=== PATIENT | female | born 1940 | race Caucasian/White ===

== ENCOUNTER → 2016-11-15 | Outpatient (CLI) | payer MEDICARE ==
[~2016-11-15] MED LIST: /AMLO25TA PO; /ONDA4TA PO; /WARF25TA; ALEV220C2; ANOR1AER INH; AQUAOIN2 EX; ASPI81TA4 PO; CIPR500T89 PO; COUM1TAB17 PO; COUM7.5T PO; DICL75TA PO; HYDR-3713 PO; IBUP100SUS PO; LIPI20TA PO; LISI2.5T PO; METH4TAB6 PO; OXCA300T PO; OXYC30TA4 PO; OXYC5CAP2 PO; PERC7.5T12 PO; PERCOCET PO; PRIL20TA2 PO; SPIRIVA; Spiriva Handihaler INH; TRIL300S PO; TYLE325T5 PO; VARE1TA PO; VITA10002 PO; VITA100T2 PO; VITA500047 PO; VITA500T88 PO; VITAD1000T PO; VITAMIN D PO; ZYMA0.5S OP
--- NOTE | 2016-11-15 10:07 | REP ---
Clinical: Abnormal liver function tests. Technique: Real time little scale ultrasound examination using curved array transducer. Findings: Evaluation is limited by body habitus and associated technical factors including poor through transmission. Diffuse fatty infiltration to the liver is appreciated without focal hepatic lesion identified. The pancreas is incompletely evaluated but visualized portions appear normal. The patient is status post cholecystectomy. There is no evidence for biliary ductal dilatation and the common bile duct measures 6.6 mm diameter. The spleen is normal in contour, size and echogenicity measuring 9.9 cm in length without focal splenic lesion identified. The kidneys are essentially normal and without hydronephrosis, cystic or obvious mass lesion. Right kidney measures 11.4 x 5.3 x 4.1 cm and partial duplication to the collecting system cannot be excluded along with renovascular calcifications. Left kidney measures 11.4 x 6.4 x 5.8 cm with renovascular calcifications noted. The abdominal aorta measures up to 3.6 centimeters diameter suggesting ectasia/mild aneurysmal dilatation. No ascites noted. Impression: Fatty infiltration to the liver without focal hepatic lesion identified. Abdominal aortic aneurysm 3.6 cm maximal diameter. Signed by Montana Alaniz MD 11/15/2016 09:58 A
--- NOTE | 2016-11-15 10:11 | REP ---
CAROTID ULTRASOUND: Real-time ultrasound evaluation and duplex Doppler interrogation of the extracranial carotid vasculature is performed. There is mild to moderate plaquing and narrowing in both carotid bulbs extending into the internal and external carotid arteries. Luminal narrowing is less than 50%. There is no evidence of hemodynamically significant stenosis of either internal carotid artery. Normal flow velocities are seen. The vertebral arteries demonstrate normal direction of flow. RIGHT LEFT Peak systolic velocity ICA 82.6 cm/s 85.6 cm/s End diastolic velocity ICA 23.1 cm/s 27.8 cm/s Peak systolic velocity CCA 76 cm/s 86.6 cm/s Peak systolic velocity ECA 67.4 cm/s 109.6 cm/s ICA/CCA ratio 1.1 1.0 IMPRESSION: Bilateral luminal narrowing of the internal carotid arteries less than 50%. No evidence of hemodynamically significant stenosis. Signed by Eamon Piedra MD 11/15/2016 10:02 A
== END ==
LOC: M RAD 07:37
PROVIDERS: ATTEND Family Medicine
DX: I71.4 Abdominal aortic aneurysm, without rupture (principal)

== ENCOUNTER 2018-07-17 06:56 | Day surgery (SDC) | payer MEDICARE ==
[2018-07-17] MEDS: METHYLENE BLUE 0.5% (5MG/ML) 10 ML AMP (PROVAYBLUE)(Q9968 PER 1MG) As Ordered (07:09)
[2018-07-17] MEDS: EPINEPHrine 1MG/ML INJ 30ML MD-VIAL As Ordered (07:10)
[2018-07-17 07:35] LABS: BEDSIDE GLUCOSE 164 MG/DL (83-110)
[2018-07-17] MEDS: LR 1,000 ML IV (07:40)
[2018-07-17] MEDS ORDERED: LIDOCAINE 2% INJ 100 MG/5 ML SDV (FOR ANES.) As Ordered (08:15)
[2018-07-17] MEDS ORDERED: ONDANSETRON 4MG/2ML VIAL (J2405) As Ordered (08:15)
[2018-07-17] MEDS ORDERED: fentaNYL 100 MCG/2 ML INJECTION (J3010) As Ordered (08:15)
[2018-07-17] MEDS ORDERED: PROPOFOL 200 MG/20 ML VIAL As Ordered ×2 (08:15→09:45)
[2018-07-17] MEDS: LIDOCAINE W/EPINEPHRINE 1% 20ML VIAL As Ordered (09:13)
[2018-07-17] MEDS: BACITRACIN OINT 30GM As Ordered (10:05)
== END 2018-07-17 10:50 | disposition home or self-care (01) ==
LOC: M SDC 06:56
DX: C44.311 Basal cell carcinoma of skin of nose (principal); E11.9 Type 2 diabetes mellitus without complications; I71.4 Abdominal aortic aneurysm, without rupture; K21.9 Gastro-esophageal reflux disease without esophagitis; R23.3 Spontaneous ecchymoses; M12.9 Arthropathy, unspecified; R29.898 Other symptoms and signs involving the musculoskeletal system; J45.909 Unspecified asthma, uncomplicated; J44.9 Chronic obstructive pulmonary disease, unspecified; R06.09 Other forms of dyspnea; G47.33 Obstructive sleep apnea (adult) (pediatric); Z88.1 Allergy status to other antibiotic agents; Z88.5 Allergy status to narcotic agent; Z79.84 Long term (current) use of oral hypoglycemic drugs; Z98.1 Arthrodesis status; Z86.718 Personal history of other venous thrombosis and embolism; Z90.710 Acquired absence of both cervix and uterus; Z96.643 Presence of artificial hip joint, bilateral; Z87.891 Personal history of nicotine dependence
CPT/HCPCS: 11641

== ENCOUNTER 2018-12-10 13:56 | Inpatient (IN) | payer MEDICARE ==
[~2018-12-10] VITALS: Ht 157.5 cm; Wt 84.8 kg
[~2018-12-10 13:56] MED LIST changes: -/AMLO25TA PO; -/ONDA4TA PO; -/WARF25TA; -ALEV220C2; +ALEV220C2 PO; +COUM1TAB18; +IBUP100S44 PO; -IBUP100SUS PO; +METF500T13 PO; +NORV2TAB PO; +ONDA-1 PO; +OXYC1TAB23 PO; -PERCOCET PO; +VITA100067 PO
[2018-12-10] MEDS ORDERED: METF-877 PO (14:04)
[2018-12-10 14:53] LABS: BASO # 0.1 10^3/uL (0.0-0.2); BASO % 0.7 % (0.0-1.0); EOS # 0.2 10^3/uL (0.0-0.50); EOS % 2.5 % (0.0-3.0); HEMATOCRIT 23.8 % (36.0-47.0); LYMPH # 1.1 10^3/uL (1.5-4.5); LYMPH % 16.9 % (24.0-44.0); MEAN CORPUSCULAR HEMOGLOBIN 23.6 pg (27.0-33.0); MEAN CORPUSCULAR HGB CONC 29.4 g/dl (32.0-36.5); MEAN CORPUSCULAR VOLUME 80.4 fl (80.0-96.0); MONO % 14.5 % (0.0-5.0); NEUTROPHILS # 4.4 10^3/uL (1.8-7.7); NEUTROPHILS % 65.1 % (36.0-66.0); PLATELET COUNT, AUTOMATED 188 10^3/uL (150-450); RED BLOOD COUNT 2.96 10^6/uL (4.00-5.40); WHITE BLOOD COUNT 6.7 10^3/uL (4.0-10.0)
[2018-12-10 15:04] LABS: INR 0.94; PROTHROMBIN TIME 12.7 SECONDS (12.1-14.4)
[2018-12-10 15:05] LABS: PARTIAL THROMBOPLASTIN TIME 37.8 SECONDS (25.4-37.6)
--- NOTE | 2018-12-10 15:13 | REP ---
Chest two views HISTORY: Shortness of breath Comparison: 07/26/1962 An increase in interstitial markings is present in the lower lobes consistent with chronic interstitial fibrosis. Patchy density is present in the right lower lobe consistent with atelectasis or infiltrate. A small right pleural effusion is present. The heart is upper limits of normal in size. The pulmonary vasculature is normal in appearance. The bony structure is intact. IMPRESSION: 1. Bibasilar chronic interstitial fibrosis. 2. Right lower lobe atelectasis or infiltrate. 3. Small right pleural effusion. Electronically Signed by Edmundo Edgar MD 12/10/2018 03:04 P
[2018-12-10 15:25] LABS: ALBUMIN 3.2 GM/DL (3.2-5.2); ALT/SGPT 21 U/L (12-78); BILIRUBIN,DIRECT < 0.1 MG/DL (0.0-0.2); BILIRUBIN,TOTAL 0.3 MG/DL (0.2-1.0); BLOOD UREA NITROGEN 15 MG/DL (7-18); CALCIUM LEVEL 8.5 MG/DL (8.8-10.2); CARBON DIOXIDE LEVEL 30 MEQ/L (21-32); CHLORIDE LEVEL 102 MEQ/L (98-107); CPK CREATINE PHOSPHOKINASE 57 U/L (26-192); CREATININE FOR GFR 0.69 MG/DL (0.55-1.30); FREE T4 1.31 NG/DL (0.76-1.46); GLOMERULAR FILTRATION RATE > 60.0 (>32); GLUCOSE, FASTING 92 MG/DL (70-100); MB/CK RELATIVE INDEX 2.63 (< OR =4); NT-PRO BNP 379 PG/ML (<450); POTASSIUM SERUM 4.3 MEQ/L (3.5-5.1); SODIUM LEVEL 138 MEQ/L (136-145); TROPONIN I 0.03 NG/ML (< 0.10)
[2018-12-10] MEDS ORDERED: METF500T4 PO ×2 (16:02)
[2018-12-10] MEDS ORDERED: VITA-183 PO (16:02)
[2018-12-10] MEDS ORDERED: NS 1,000 ML IV SCH (16:27)
[2018-12-10] MEDS ORDERED: DEXTROSE 50% 50 ML SYRINGE IV PRN (16:30)
[2018-12-10] MEDS ORDERED: GLUCOSE 4 GM CHEW TABLET PO PRN (16:30)
[2018-12-10] MEDS ORDERED: GLUCAGON FOR INJ 1 MG VIAL (J1610) SC PRN (16:30)
--- NOTE | 2018-12-10 17:01 | HPEPDOC ---
[facility] Medical History & Physical Date of Admission Dec 10, [address] Clifton (GI) Attending Physician: MARYANNE KOO MD History and Physical CHIEF COMPLAINT: Shortness of breath HISTORY OF PRESENT ILLNESS: Patient is a 78-year-old female with past medical history of COPD, DVT, and GI bleed in 2017 status post for colonoscopies presented to the ER with complaints of shortness of breath. Patient stated that she has been getting worsening shortness of breath over the past 2 weeks. She initially went to urgent care and found to have some EKG changes and therefore sent to [place] ER. At [place], everything was deemed normal and she was discharged home. She will follow up with her PCP post discharge and was found to be anemic with hemoglobin of 7.6 and was sent to the ER. In the ER here, patient was found to have a hemoglobin 7.0. Rectal exam show no blood however. Patient stated that she has no known history of anemia until recently. Of note, when she had rectal bleeding in July [address] Clifton and has for colonoscopies and was told that she had a polyp that was unable to be reached and that she should follow up in about 1 year. However, she had not follow-up since then because she has not received any phone calls. Patient denies any other complaints apart from shortness of breath. She denies noticing any abnormal dark stool color nor blood in her stool. She reported feeling fine and has had no issues apart from what was mentioned. PAST MEDICAL HISTORY: Refer to HPI PAST SURGICAL HISTORY: Hysterectomy Cholecystectomy Appendectomy Lumbar spinal fusion Bilateral hip replacement SOCIAL HISTORY: Former smoker, denies alcohol or illicit drug use. FAMILY HISTORY: Both parents with congestive heart failure Father with atrial fibrillation Brother with cirrhosis and diabetes mellitus ALLERGIES: Please see below. REVIEW OF SYSTEMS: 10 point review of system negative except as stated in HPI HOME MEDICATIONS: Please see below. PHYSICAL EXAMINATION: General: No acute distress, Alert. Pale. Eyes: Normal sclera, EOMI, RIKKI HENT: Atraumatic, neck supple, moist mucous membranes Cardiovascular: Normal rate, normal rhythm. No murmurs appreciated. Pulmonary: Clear to auscultation b/l, no wheezing GI: Soft, nontender, nondistended Skin: Warm and dry Neuro: CN grossly intact. No focal deficits. Strengths equal b/l. Psych: oriented x 3 LABORATORY DATA: See below. IMAGING: CXR- IMPRESSION: 1. Bibasilar chronic interstitial fibrosis. 2. Right lower lobe atelectasis or infiltrate. 3. Small right pleural effusion. MICROBIOLOGY: Please see below. ASSESSMENT AND PLAN: 1. SOB - Likely 2/2 symptomatic anemia. - history of GI bleed in 2017 s/p 4 colonoscopies. - Reportedly has 1 polyp that was not reached and supposed to follow up but lost to follow up. - rectal exam showed no evidence of blood. Will obtain fecal occult blood test. - Transfuse 2 units pRBC. Monitor H/H. - likely slow bleed, no evidence of gross blood noted. - If stable, patient and family would like to perform colonoscopies as outpatient with Dr Clifton in [place]. - Will defer GI consult at this time. If gross bleeding develops or Hb not corrected, will need GI input and likely scope here. - Obtain Iron and other anemia panel labs. 2. DM - On metformin at home. - Hold PO glycemic meds. ISS and accuchecks ACHS. 3. COPD - Uses O2 only at night 2L. - Does not appear to be in exacerbation. - duonebs PRN. 4. hx DVT - approximately 20 years ago, no longer on blood thinners. DVT ppx: ORAL only. Hold heparin or lovenox due to GI bleed. Code status: DNR Vital Signs Vital Signs Date Time Temp Pulse Resp B/P (MAP) Pulse Ox O2 Delivery O2 Flow Rate FiO2 12/10/18 14:36 12/10/18 14:36 Nasal Cannula 2.0 12/10/18 13:56 99.0 95 17 89 Laboratory Data Labs 24H Laboratory Tests 2 12/10/18 14:35: Immature Granulocyte % (Auto) 0.3, White Blood Count 6.7, Red Blood Count 2.96L, Hemoglobin 7.0L, Hematocrit 23.8L, Mean Corpuscular Volume 80.4, Mean Corpuscular Hemoglobin 23.6L, Mean Corpuscular Hemoglobin Concent 29.4L, Red Cell Distribution Width 17.6H, Platelet Count 188, Neutrophils (%) (Auto) 65.1, Lymphocytes (%) (Auto) 16.9L, Monocytes (%) (Auto) 14.5H, Eosinophils (%) (Auto) 2.5, Basophils (%) (Auto) 0.7, Neutrophils # (Auto) 4.4, Lymphocytes # (Auto) 1.1L, Monocytes # (Auto) 1.0H, Eosinophils # (Auto) 0.2, Basophils # (Auto) 0.1, Nucleated Red Blood Cells % (auto) 0.0, Prothrombin Time 12.7, Prothromb Time International Ratio 0.94, Activated Partial Thromboplast Time 37.8H, Anion Gap 6L, Glomerular Filtration Rate > 60.0, Calcium Level 8.5L, Aspartate Amino Transf (AST/SGOT) 32, Alanine Aminotransferase (ALT/SGPT) 21, Alkaline Phosphatase 144H, Total Bilirubin 0.3, Direct Bilirubin < 0.1, Total Creatine Kinase 57, Creatine Kinase MB 2.0, Creatine Kinase MB Relative Index 2.63, Troponin I 0.03, XR-Vpd-D-Type Natriuretic Peptide 379, Total Protein 7.0, Albumin 3.2, Albumin/Globulin Ratio 0.84L, Thyroid Stimulating Hormone (TSH) 1.240, Free Thyroxine 1.31 CBC/BMP Laboratory Tests 12/10/18 14:35 Red Blood Count 2.96 L, Mean Corpuscular Volume 80.4, Mean Corpuscular Hemoglob in 23.6 L, Mean Corpuscular Hemoglobin Concent 29.4 L, Red Cell Distribution Width 17.6 H, Neutrophils (%) (Auto) 65.1, Lymphocytes (%) (Auto) 16.9 L, Monocytes (%) (Auto) 14.5 H, Eosinophils (%) (Auto) 2.5, Basophils (%) (Auto) 0.7, Neutrophils # (Auto) 4.4, Lymphocytes # (Auto) 1.1 L, Monocytes # (Auto) 1.0 H, Eosinophils # (Auto) 0.2, Basophils # (Auto) 0.1 Home Medications Scheduled Cholecalciferol (Vitamin D3) (Vitamin D3) 1,000 Unit Capsule, 2,000 UNIT PO DAILY Metformin HCl (Metformin HCl ER) 500 Mg Tab.er.24h, 500 MG PO DAILY Metformin HCl (Metformin HCl ER) 500 Mg Tab.er.24h, 1,000 MG PO QHS Umeclidinium Brm/Vilanterol Tr (Anoro Ellipta 62.5-25 Mcg INH) 1 Aer Aer, 1 PUFF INH DAILY PT ONLY USES NEEDED Allergies Coded Allergies: MS - Cephalosporins (Verified Allergy, Intermediate, HIVES, 07/17/18) Cephalosporins (Unverified Allergy, Unknown, HIVES, 12/10/18) morphine (Unverified Allergy, Unknown, LOCAL REDNESS, 12/10/18) MS - Morphine (Verified Adverse Reaction, Mild, LOCAL REDNESS, 07/17/18) MARYANNE KOO MD Dec 10, 2018 17:01
[2018-12-10 17:19] LABS: FERRITIN 12 NG/ML (8-252); IRON (FE) 20 UG/DL (50-170); PERCENT SATURATION 3.9 % (13.2-45.0); TOTAL IRON BINDING CAPACITY 515 UG/DL (250-450)
[2018-12-10 17:29] LABS: VITAMIN B12 LEVEL 354 PG/ML
[2018-12-10 17:30] LABS: FOLATE 9.2 NG/ML
[2018-12-10] MEDS: HumaLOG INSULIN (NovoLOG) PER UNIT SC SCH ×2 (17:30→21:00)
[2018-12-10 18:05] LABS: D-DIMER QUANT 2989.18 ng/ml (<500)
[2018-12-10 18:45] VITALS: BP 159/73
[2018-12-10 20:00] VITALS: BP 150/69
[2018-12-10 22:00] VITALS: BP 126/62
[2018-12-10] MEDS: PANTOPRAZOLE 40MG INJ (PROTONIX) (C9113) IV SCH (23:06)
[2018-12-11 02:00] VITALS: BP 130/66
[2018-12-11 06:00] VITALS: BP 128/66
[2018-12-11 06:14] LABS: HEMATOCRIT 27.4 % (36.0-47.0); HEMOGLOBIN 8.2 g/dl (12.0-15.5); MEAN CORPUSCULAR HEMOGLOBIN 23.8 pg (27.0-33.0); MEAN CORPUSCULAR HGB CONC 29.9 g/dl (32.0-36.5); MEAN CORPUSCULAR VOLUME 79.7 fl (80.0-96.0); PLATELET COUNT, AUTOMATED 176 10^3/uL (150-450); RED BLOOD COUNT 3.44 10^6/uL (4.00-5.40); WHITE BLOOD COUNT 5.9 10^3/uL (4.0-10.0)
[2018-12-11 06:41] LABS: BLOOD UREA NITROGEN 10 MG/DL (7-18); CALCIUM LEVEL 8.1 MG/DL (8.8-10.2); CARBON DIOXIDE LEVEL 29 MEQ/L (21-32); CHLORIDE LEVEL 106 MEQ/L (98-107); CREATININE FOR GFR 0.71 MG/DL (0.55-1.30); GLOMERULAR FILTRATION RATE > 60.0 (>32); GLUCOSE, FASTING 113 MG/DL (70-100); POTASSIUM SERUM 4.2 MEQ/L (3.5-5.1); SODIUM LEVEL 140 MEQ/L (136-145)
[2018-12-11] MEDS: HumaLOG INSULIN (NovoLOG) PER UNIT SC SCH ×4 (07:30→20:58)
[2018-12-11] MEDS: PANTOPRAZOLE 40MG INJ (PROTONIX) (C9113) IV SCH ×2 (08:59→20:58)
[2018-12-11] MEDS ORDERED: ONDANSETRON 4MG/2ML VIAL (J2405) IV PRN (09:45)
[2018-12-11 10:00] VITALS: BP 124/69
[2018-12-11 14:00] VITALS: BP 139/70
--- NOTE | 2018-12-11 15:34 | IPNPDOC ---
Date Seen The patient was seen on 12/11/18. Progress Note SUBJECTIVE: 78-year-old female history of COPD, DVT and previous episode GI bleeding in 2017 Presented with Complaints of Shortness of Breath and Anemia Admitted for Symptomatic Anemia. Interval history: Patient reported feeling relatively unchanged and still with SOB. s/p 2 units pRBC. otherwise has no other complaints apart from SOB. Saturating well overnight. OBJECTIVE PHYSICAL EXAMINATION: VITAL SIGNS: Please see below. General: No acute distress, Alert Eyes: Normal sclera, EOMI, RIKKI HENT: Atraumatic, neck supple, moist mucous membranes Cardiovascular: Normal rate, normal rhythm. No murmurs appreciated. Pulmonary: Clear to auscultation b/l, no wheezing GI: Soft, nontender, nondistended Skin: Warm and dry Neuro: CN grossly intact. No focal deficits. Strengths equal b/l. Psych: oriented x 3 LABORATORY DATA, IMAGING STUDIES, MICROBIOLOGY: Please see below. DVT prophylaxis ordered?: ORAL ASSESSMENT AND PLAN: 1. SOB - Likely 2/2 symptomatic anemia. - history of GI bleed in 2017 s/p 4 colonoscopies. - Reportedly has 1 polyp that was not reached and supposed to follow up but lost to follow up. - rectal exam showed no evidence of blood. - s/p 2 units pRBC. Monitor H/H. - likely slow bleed, no evidence of gross blood noted. - If stable, patient and family would like to perform colonoscopies as outpatient with Dr Clifton in [place]. - Will defer GI consult at this time. If gross bleeding develops or Hb not corrected, will need GI input and likely scope here. - Stool occult blood negative x1. Will repeat another. - iron deficiency on blood work. Start on ferrous sulfate. - D dimer elevated, although patient is not tachycardic and not currently hypoxic. - CT angio ordered to r/o PE. 2. DM - On metformin at home. - Hold PO glycemic meds. ISS and accuchecks ACHS. 3. COPD - Uses O2 only at night 2L. - Does not appear to be in exacerbation. - duonebs PRN. 4. hx DVT - approximately 20 years ago, no longer on blood thinners. DVT ppx: ORAL only. Hold heparin or lovenox due to suspected GI bleed. Code status: DNR Disposition: Home VS, I&O, 24H, Fishbone Vital Signs/I&O Vital Signs Date Time Temp Pulse Resp B/P (MAP) Pulse Ox O2 Delivery O2 Flow Rate FiO2 12/11/18 14:00 98.7 92 20 139/70 (93) 97 12/11/18 09:00 1.0 12/10/18 18:23 Nasal Cannula I&O- Last 24 Hours up to 6 AM 12/11/18 06:00 Intake Total 460 ml Output Total 0 ml Balance 460 ml Laboratory Data 24H LABS Laboratory Tests 2 12/10/18 18:50: Bedside Glucose (Misc Panel) 154H 12/10/18 19:51: Bedside Glucose (Misc Panel) 150H 12/11/18 05:36: Nucleated Red Blood Cells % (auto) 0.0, Anion Gap 5L, Glomerular Filtration Rate > 60.0, Blood Urea Nitrogen 10, Creatinine 0.71, Sodium Level 140, Potassium Level 4.2, Chloride Level 106, Carbon Dioxide Level 29, Calcium Level 8.1L 12/11/18 11:49: Bedside Glucose (Misc Panel) 113H CBC/BMP Laboratory Tests 12/11/18 05:36 Red Blood Count 3.44 L, Mean Corpuscular Volume 79.7 L, Mean Corpuscular Hemoglobin 23.8 L, Mean Corpuscular Hemoglobin Concent 29.9 L, Red Cell Distribution Width 17.7 H, Calcium Level 8.1 L Microbiology Microbiology 12/11/18 Stool Occult Blood (HARRIET) - Final, Complete MARYANNE KOO MD Dec 11, 2018 15:34
[2018-12-11] MEDS ORDERED: ISOVUE-370 76% 100ML VIAL (Q9967) As Ordered ONE (15:58)
[2018-12-11 16:12] LABS: HEMATOCRIT 27.8 % (36.0-47.0); HEMOGLOBIN 8.2 g/dl (12.0-15.5)
--- NOTE | 2018-12-11 17:41 | REP ---
CT of the chest with IV contrast, CT pulmonary angiography protocol: There are no emboli in the pulmonary trunk or central pulmonary arteries. There are no emboli in the pulmonary artery lobe or segment branches. There is collapse of a portion of the right middle lobe medial segment. There is a small right pleural effusion. The margin of the effusion is somewhat undulating, therefore, this may be loculated. There is a saccular aneurysm arising from the distal descending thoracic aorta posterior wall behind the heart measuring 3.1 cm transversely by 3.2 cm craniocaudad. There is nonenhancing the fluid surrounding the aneurysm. This may represent clot. There is a tiny focal density posterior to the aneurysm, unchanged from the abdomen CT of 12/05/2017, possibly small atheromatous calcification. There is no increase in size of the surrounding soft tissue density. The thoracic aorta is otherwise unremarkable. Cardiac size is enlarged for as a pericardial effusion measuring up to 2.3 cm along the right lateral cardiac margin. This measured 1.1 cm on 12/05/2017. Impression: There are no pulmonary emboli. There is partial collapse of the right middle lobe medial segment. There is a small right pleural effusion. This may be loculated. There is a pericardial effusion measuring up to 2.2 cm depth along the right lateral cardiac wall. Cardiomegaly. There is a saccular aneurysm arising from the distal descending thoracic aorta posteriorly, not significantly changed from an abdomen CT of 12/05/2017. There are no comparison chest CTs. Electronically Signed by Eamon Huang MD 12/11/2018 05:32 P
[2018-12-11 18:00] VITALS: BP 128/70
[2018-12-11] MEDS: FERROUS SULFATE 325MG TAB PO SCH (20:58)
[2018-12-11 22:00] VITALS: BP 142/80
[2018-12-12 02:00] VITALS: BP 122/64
[2018-12-12 06:00] VITALS: BP 110/60
[2018-12-12 06:48] LABS: HEMATOCRIT 30.8 % (36.0-47.0); HEMOGLOBIN 8.8 g/dl (12.0-15.5); MEAN CORPUSCULAR HEMOGLOBIN 23.8 pg (27.0-33.0); MEAN CORPUSCULAR HGB CONC 28.6 g/dl (32.0-36.5); MEAN CORPUSCULAR VOLUME 83.2 fl (80.0-96.0); PLATELET COUNT, AUTOMATED 178 10^3/uL (150-450); WHITE BLOOD COUNT 7.8 10^3/uL (4.0-10.0)
[2018-12-12 07:16] LABS: BLOOD UREA NITROGEN 11 MG/DL (7-18); CALCIUM LEVEL 8.2 MG/DL (8.8-10.2); CARBON DIOXIDE LEVEL 29 MEQ/L (21-32); CHLORIDE LEVEL 103 MEQ/L (98-107); GLOMERULAR FILTRATION RATE > 60.0 (>32); GLUCOSE, FASTING 120 MG/DL (70-100); POTASSIUM SERUM 4.1 MEQ/L (3.5-5.1); SODIUM LEVEL 137 MEQ/L (136-145)
[2018-12-12] MEDS: PANTOPRAZOLE 40MG INJ (PROTONIX) (C9113) IV SCH (08:23)
[2018-12-12] MEDS: FERROUS SULFATE 325MG TAB PO SCH (08:23)
[2018-12-12] MEDS: HumaLOG INSULIN (NovoLOG) PER UNIT SC SCH ×3 (08:24→16:26)
[2018-12-12] MEDS ORDERED: PREVNAR 13 VACCINE SYRINGE (CPT CODE:90670) IM ONE (09:00)
[2018-12-12 10:00] VITALS: BP 141/55
--- NOTE | 2018-12-12 11:40 | CR ---
DATE OF CONSULTATION: 12/12/2018 REFERRING PHYSICIAN: Dr. Ayaan Farley REASON FOR CONSULTATION: Abnormal CT of the chest. HISTORY OF PRESENT ILLNESS: Ms. Herron is a delightfully pleasant 78-year-old female who quit smoking several years ago. She was found to have oxygen dependent underlying obstructive lung disease for which she is on nocturnal oxygen supplementation. She tells me she is not required medications for her breathing and has not been hospitalized for it. She does have chronic level of dyspnea but recently had an acute change in that level while visiting her daughter. Denies any preceding illnesses. No sick contacts. She has somewhat of an intermittent chronic cough, usually productive of a yellowish sputum. No hemoptysis. No chest pain. She presented to the emergency room and was found to be quite anemic with a hemoglobin of 7.0. She was transfused up to 8.8, and although she says she generally feels better, and that she is a little stronger and less fatigued, she has really not noticed any change in her dyspnea. CT angio done today to rule out pulmonary emboli when compared to an abdominal scan from 12/05/2018 shows an increase in a pericardial effusion from about 1 cm to almost 3 cm. She is known to have a saccular aneurysm of the descending aorta. This is being addressed by the primary service and thoracic surgery. There are reports of that aneurysm, however, dating back to even 2010. She denies any significant pain. No hemoptysis. No recent trauma. ALLERGIES: CEPHALOSPORINS, MORPHINE. HOME MEDICATIONS: - vitamin D - metformin - Anoro PAST MEDICAL HISTORY: Significant for underlying obstructive lung disease. Previous deep venous thrombosis. Previous significant gastrointestinal (GI) bleed in 2017. Non-insulin diabetes mellitus. PAST SURGICAL HISTORY: Hysterectomy. Cholecystectomy. Appendectomy. Lumbar spinal fusion. Bilateral hip replacements. FAMILY HISTORY: Significant for both parents having congestive heart failure. Father had atrial fibrillation. She has one brother with diabetes and cirrhosis. SOCIAL HISTORY: Lives with family nearby. Reformed tobacco. No regular alcohol. REVIEW OF SYSTEMS: As per the history of present illness (HPI), otherwise; Constitutional negative for any recent fever or chills. HEENT: Unremarkable for double or blurred vision. Pulmonary is as per HPI. Cardiac: Unremarkable for any recent angina. GI: Unremarkable for nausea or vomiting. : Unremarkable for dysuria or urgency. Neurologic: Unremarkable for seizure or strokes. Endocrine: Significant for a non-insulin diabetes mellitus. Hematologic: Significant for her new anemia. Musculoskeletal: Unremarkable for any new arthralgias or myalgias. NEUROLOGIC: Unremarkable PSYCHIATRIC: Unremarkable. PHYSICAL EXAMINATION: Reveals a pleasant well-nourished, well-developed elderly female sitting in the bedside chair. Blood pressure 140/60, heart rate 80 and regular. Respiratory rate about 18-20 and unlabored. She is currently afebrile. HEENT: Otherwise, normocephalic, atraumatic. Pupils react. Nasal cannula oxygen in place. Membranes are moist and trachea is in the midline. Neck is pretty supple for age. Chest shows diminished but symmetric expansion. Percussion reasonable. Tactile fremitus is palpable. There is no focal wheeze, rhonchus, crackles or rubs. Cardiac exam is quite distant, appears regular. Peripheral pulses are diminished but palpable. Trace edema at best. Abdomen soft with active bowel sounds. No obvious organomegaly or masses. Extremities: No cyanosis or clubbing. Neurologically, she is awake, alert and appropriate. Psychological: Normal mood and affect. Pulse ox currently 92% on 2.5 liters nasal cannula flow. CT angiogram done yesterday is reviewed and shows suboptimal respiratory effort. Her pericardial effusion as outlined above. There is some subsegmental atelectasis in the right middle lobe distribution. Her aneurysm and blood collection is as described by the radiologist. IMPRESSION: Chronic hypoxemia, question respiratory failure oxygen requiring. Underlying obstructive lung disease. Previous tobacco history. Abnormal CT scan with subsegmental right middle lobe atelectasis. Pericardial effusion. Known thoracic aortic aneurysm. Symptomatic anemia. RECOMMENDATION: The above is reviewed at length with the patient and her daughter at the bedside. At this point, I believe there is no acute intervention required regarding her subsegmental atelectasis as I believe that is clearly not the source of her anemia. Certainly I am concerned more with her pericardial effusion as it is more sizable in the last 7-8 days. She is not hypotensive, however. She does not have a rebound tachycardia. At this point, further evaluation is being engineered through the primary service and echocardiogram is pending. I note that I have spoken as well with thoracic surgery who will see her in consultation. At this point, her obstructive lung disease appears symptomatically compensated. I do not plan bronchoscopy at this point for her subsegmental atelectasis but will follow her in view of the above. At this point, we await the outcome of the above interventions. Further recommendations will be made in the progress record as new information is available.
[2018-12-12 14:00] VITALS: BP 128/47
[2018-12-12] MEDS ORDERED: FERR325T18 PO (16:16)
--- NOTE | 2018-12-12 16:27 | DS.PDOC ---
Discharge Summary General Date of Admission Dec 10, 2018 at 16:30 Date of Discharge 12/12/18 Attending Physician: MARYANNE KOO MD Specialist/Consultants Involve: Maicol Green M.D. Specialist/Consultants Involve Dr. Torres Valladares Discharge Summary PROCEDURES PERFORMED DURING STAY: [None]. ADMITTING DIAGNOSES: 1. Symptomatic anemia. 2. DM 3. COPD 4. Hx DVT DISCHARGE DIAGNOSES: 1. Symptomatic anemia. 2. DM 3. COPD 4. Hx DVT 5. 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 Pleural effusion 7. Renal mass COMPLICATIONS/CHIEF COMPLAINT: Anemia COPD Diabetes Mellitus Sob. HISTORY OF PRESENT ILLNESS: "Patient is a 78-year-old female with past medical history of COPD, DVT, and GI bleed in 2017 status post for colonoscopies presented to the ER with complaints of shortness of breath. Patient stated that she has been getting worsening shortness of breath over the past 2 weeks. She initially went to urgent care and found to have some EKG changes and therefore sent to [place] [facility]. At [place], everything was deemed normal and she was discharged home. She will follow up with her PCP post discharge and was found to be anemic with hemoglobin of 7.6 and was sent to the ER. In the ER here, patient was found to have a hemoglobin 7.0. Rectal exam show no blood however. Patient stated that she has no known history of anemia until recently. Of note, when she had rectal bleeding in July [address] Clifton and has for colonoscopies and was told that she had a polyp that was unable to be reached and that she should follow up in about 1 year. However, she had not follow-up since then because she has not received any phone calls. Patient denies any other complaints apart from shortness of breath. She denies noticing any abnormal dark stool color nor blood in her stool. She reported feeling fine and has had no issues apart from what was mentioned." HOSPITAL COURSE: Patient is an 78-year-old female with past medical history of previous GI bleed about 1 year prior status post for colonoscopies, COPD, history of DVT sent ER with complaints of 2 weeks of worsening shortness of breath. Hemoglobin was noted to be at 7.0 and initially thought anemia from recurrent occult bleed from previous and underwent to PRBC transfusion with some improvement in symptoms. A CT angiogram was done as patient was still symptomatic post blood transfusion which showed no pulmonary embolism but a number of other incidental findings were noted. However, saccular aneurysm from the distal descending thoracic aorta was noted with nonenhancing fluid surrounding the aneurysm. Additional findings include collapse of right middle lobe medial segment, small right pleural effusion, suspected mass on L. kidney and pericardial effusion measuring up to 2.2 cm depth along the right lateral cardiac wall. Patient was evaluated by both pulmonary as well as cardiothoracic surgery. Findings discussed with CT surgery who think that patient may have a saccular aneurysm leak as it is larger from previous abdominal CT that was done last year. He had recommended the patient be transferred for higher acuity of care as patient may require endovascular intervention. Patient and family doesn't seem to have much knowledge of aneurysm, although previous CT scans in the system does note the findings previously. Most follow-up was likely done as outpatient. Patient has been hemodynamically stable and reported feeling better than prior. DISCHARGE MEDICATIONS: Please see below. ALLERGIES: Please see below. PHYSICAL EXAMINATION ON DISCHARGE: VITAL SIGNS: Please see below. General: No acute distress, Alert. Pale. Eyes: Normal sclera, EOMI, RIKKI HENT: Atraumatic, neck supple, moist mucous membranes Cardiovascular: Normal rate, normal rhythm. No murmurs appreciated. Pulmonary: Clear to auscultation b/l, no wheezing GI: Soft, nontender, nondistended Skin: Warm and dry Neuro: CN grossly intact. No focal deficits. Strengths equal b/l. Psych: oriented x 3 LABORATORY DATA: Please see below. IMAGING: CXR- IMPRESSION: 1. Bibasilar chronic interstitial fibrosis. 2. Right lower lobe atelectasis or infiltrate. 3. Small right pleural effusion. CT Angio chest- CT of the chest with IV contrast, CT pulmonary angiography protocol: There are no emboli in the pulmonary trunk or central pulmonary arteries. There are no emboli in the pulmonary artery lobe or segment branches. There is collapse of a portion of the right middle lobe medial segment. There is a small right pleural effusion. The margin of the effusion is somewhat undulating, therefore, this may be loculated. There is a saccular aneurysm arising from the distal descending thoracic aorta posterior wall behind the heart measuring 3.1 cm transversely by 3.2 cm craniocaudad. There is nonenhancing the fluid surrounding the aneurysm. This may represent clot. There is a tiny focal density posterior to the aneurysm, unchanged from the abdomen CT of 12/05/2017, possibly small atheromatous calcification. There is no increase in size of the surrounding soft tissue density. The thoracic aorta is otherwise unremarkable. Cardiac size is enlarged for as a pericardial effusion measuring up to 2.3 cm along the right lateral cardiac margin. This measured 1.1 cm on 12/05/2017. Impression: There are no pulmonary emboli. There is partial collapse of the right middle lobe medial segment. There is a small right pleural effusion. This may be loculated. There is a pericardial effusion measuring up to 2.2 cm depth along the right lateral cardiac wall. Cardiomegaly. There is a saccular aneurysm arising from the distal descending thoracic aorta posteriorly, not significantly changed from an abdomen CT of 12/05/2017. There are no comparison chest CTs. ACTIVITY: [As tolerated]. DIET: NPO at this time DISCHARGE PLAN: Transfer to [facility] for further evaluation and intervention DISPOSITION: To [facility]. ITEMS TO FOLLOWUP ON ON OUTPATIENT: 1. Official ECHO report. DISCHARGE CONDITION: [Stable]. TIME SPENT ON DISCHARGE: Greater than 45 minutes. Accepting doctor: Dr. Gonzales @5:26PM Vital Signs/I&Os Vital Signs Date Time Temp Pulse Resp B/P (MAP) Pulse Ox O2 Delivery O2 Flow Rate FiO2 12/12/18 14:00 99.0 73 18 128/47 (74) 97 2.5 12/10/18 18:23 Nasal Cannula I&O- Last 24 Hours up to 6 AM 12/12/18 06:00 Intake Total 1740 ml Balance 1740 ml Laboratory Data Labs 24H Laboratory Tests 2 12/11/18 17:05: Bedside Glucose (Misc Panel) 118H 12/11/18 20:19: Bedside Glucose (Misc Panel) 136H 12/12/18 06:30: Nucleated Red Blood Cells % (auto) 0.0, Anion Gap 5L, Glomerular Filtration Rate > 60.0, Blood Urea Nitrogen 11, Creatinine 0.80, Sodium Level 137, Potassium Level 4.1, Chloride Level 103, Carbon Dioxide Level 29, Calcium Level 8.2L 12/12/18 11:19: Bedside Glucose (Misc Panel) 142H CBC/BMP Laboratory Tests 12/12/18 06:30 Red Blood Count 3.70 L, Mean Corpuscular Volume 83.2, Mean Corpuscular Hemoglobin 23.8 L, Mean Corpuscular Hemoglobin Concent 28.6 L, Red Cell Distribution Width 17.9 H, Calcium Level 8.2 L FSBS Laboratory Tests Test 12/11/18 17:05 12/11/18 20:19 12/12/18 11:19 Range/Units Bedside Glucose (Misc Panel) 118 136 142 83-110 MG/DL Microbiology Microbiology 12/11/18 Stool Occult Blood (HARRIET) - Final, Complete Discharge Medications Scheduled Cholecalciferol (Vitamin D3) (Vitamin D3) 1,000 Unit Capsule, 2,000 UNIT PO KENROY LY, (Reported) Ferrous Sulfate (Ferrous Sulfate) 325 Mg Tablet, 325 MG PO BID Metformin HCl (Metformin HCl ER) 500 Mg Tab.er.24h, 500 MG PO DAILY, (Reported) Metformin HCl (Metformin HCl ER) 500 Mg Tab.er.24h, 1,000 MG PO QHS, (Reported) Umeclidinium Brm/Vilanterol Tr (Anoro Ellipta 62.5-25 Mcg INH) 1 Aer Aer, 1 PUFF INH DAILY, (Reported) PT ONLY USES NEEDED Allergies Coded Allergies: Cephalosporins (Unverified Allergy, Unknown, HIVES, 12/10/18) morphine (Unverified Allergy, Unknown, LOCAL REDNESS, 12/10/18) MARYANNE KOO MD Dec 12, 2018 16:27
--- NOTE | 2018-12-12 17:36 | CR ---
DATE OF CONSULTATION: 12/12/2018 Patient seen at the request of the hospitalist service Dr. Farley for shortness of breath and pleural effusion. HISTORY OF PRESENT ILLNESS: Patient is a 78-year-old white female whose most recent story starts 2 weeks ago after she returned home from dinner at her daughters house as she was entering her house suddenly became short of breath has not subsided since then for the last year at least she has felt more fatigued. Notably with the shortness of breath she had no new pain at all. She has chronic back pain which she has undergone a laminectomy in the remote past. She denies any change in her back pain. There is no anterior chest pain or chest pressure. She has a chronic cough with yellow sputum production but put that down to her long smoking history of 2-3 packs per day until about 5 years ago. There is no dysphagia and no untended weight loss. There has been no fevers, chills or sweats. She presented to the emergency room on 12/10/2018 with a hemoglobin of 7. There is no prior history of anemia, however a number of years in 2017 she had a polyp removed. That was discovered with rectal bleeding. She has not had any black tarry stools nor has she had hematochezia or hematemesis. She has occasional heart burn but is not on any chronic antacid therapy. PAST MEDICAL HISTORY: COPD, prior DVT in the remote past and diabetes. PAST SURGICAL HISTORY: Hysterectomy, cholecystectomy, appendectomy, lumbar laminectomy and bilateral hip replacements. MEDICATIONS AT HOME: Vitamin D 2000 units daily, metformin 500 mg daily, and 1000 mg at bedtime and Anoro Ellipta 62.5-25 mcg 1 puff daily. EXPOSURES: She has one cat at home, no dogs or birds. OCCUPATION HISTORY: She was a former nurse at 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 Until then all of her TB tests were negative. FAMILY HISTORY: Not pertinent to the acute problem. REVIEW OF SYSTEMS CONSTITUTIONAL: See history of present illness. EYES: Without diplopia, without amaurosis fugax, without prior jaundice. NOSE: Without epistaxis. MOUTH: Wears upper dentures. RESPIRATORY: See history of the present illness. CARDIAC: Without primary cardial infarctions. Without orthopnea. Without paroxysmal nocturnal dyspnea. Has occasional leg edema without intermittent claudication. GASTROINTESTINAL (GI): Without nausea, vomiting, diarrhea, constipation, melena, hematochezia or hematemesis. GENITOURINARY: Without dysuria or hematuria. Prior history of renal stones. ENDOCRINE: With diabetes, without thyroid disease. SKIN: Without new lesions. PSYCHIATRIC: Without pathologic anxieties, depressions, or psychoses. PHYSICAL EXAMINATION: GENERAL: Well developed, well nourished, obese white female in no acute distress. VITAL SIGNS: Blood pressure 128/47 with a temperature of 99, pulse 73, with a regular rate and rhythm and a respiratory rate of 18 without the use of accessory muscles who is 97% saturated on 2.5 liters nasal cannula. EYES: Pupils equal, round and reactive to light. Extraocular motor intact. Sclerae nonicteric. NOSE: Without deformity. MOUTH: Shows her mucous membranes to be pink and moist. Lips and commissures without lesions. There is no thrush. Teeth are in good repair. NECK: Neck is supple. There is no jugular venous distention. No subcutaneous emphysema. Trachea is midline. There is no lymphadenopathy and no thyromegaly. She has 2+ carotid upstrokes and no bruits. CARDIAC: Without murmurs clicks, gallops or rubs. I can not feel her PMI. S1, S2 are normal. LUNGS: Show some inspiratory crackles in the right lung. Percussion note full to the diaphragm. ABDOMEN: Soft and nontender. Bowel sounds are positive. There is no hepatomegaly. There is no costovertebral angle (CVA) tenderness and no hepatomegaly. EXTREMITIES: Show no pretibial edema. No calf tenderness. No differential swelling of the upper extremities. SKIN: Warm, dry and perfused without cyanosis or mottling, including that of the nail beds and the knees. NEUROLOGIC: Shows II-XII intact along with gross motor and gross sensation intact. Gait is not tested. PSYCHIATRIC: Shows her to be awake and alert, oriented times three with appropriate mood and affect and conversational. Her white count is 7.8 with a hemoglobin and hematocrit of 8.8 and 30.8 with a platelet count of 178. H and H on 12/10/2018 was 7 and 23.8. She has been transfused 2 units. Her electrolytes are normal with a BUN and creatinine of 11 and 0.8 and a glucose of 120 and a calcium of 8.2. PT/INR 12.7 and 0.94 with a PTT of 37. Her D-dimer was 2989. Troponin was 0.03 and peptide was 379. Her chest CT done with angiographic protocol does not show a pulmonary embolism. She does have a pericardial effusion. When compared to her abdominal scan done on the , pericardial effusion is larger to about 2.5 cm along the right atrium. She has a saccular aneurysm of the descending aorta just above the diaphragm. There is a collection of fluid around the aneurysm which is larger than it was on the . There is a calcification what I think is the wall of the saccular aneurysm. This looks to be a blood extravasation which has increased since the on the abdominal scan. She has a heterogenous mass in the left kidney. Liver looks to be fluid disease. The lung shows some atelectasis of the middle lobe. I do not see any mass per say. She does have emphysematous changes IMPRESSION: 1. Pericardial effusion without evidence of ascending aortic dissection. 2. Saccular aneurysm with extravasation of blood increased over the last 5-days. 3. Renal mass. 4. COPD. 5. Diabetes. 6. Prior DVT. 7. Prior GI bleed. PLAN AND DISCUSSION: Her stool was negative for blood. No urinalysis has been done. Her most pressing problem is the saccular aneurysm which I think is probably leaking. However she does not complain of any new back pain or chest pain. Also the volume of extravasation around the aneurysm is not enough to explain her profound anemia from an acute bleed. She does have pericardial effusion which is also of an unknown cause but could be metastatic secondary to her newly found renal mass. It is my recommendation that she be transferred to [facility] to address the saccular aneurysm. Perhaps this can be taken with endovascular techniques. The renal tumor can be addressed at her leisure and [facility] can also address her pericardial effusion. She is getting an echo and we will see if there is any compression although it does not look as if she is in tamponade at this point and time.
[2018-12-12 18:00] VITALS: BP 126/60
--- NOTE | 2018-12-12 21:21 | ECGEPIP ---
Stationary ECG Study [facility] - ED Test Date: 2018-12-10 Pat Name: VOLODYMYR ORR Department: Room: - Gender: F [employer]: KEVIN : 1940 Requested By: DEREK Casillas Order Number: [id number] Reading MD: Chitra Jimenez Measurements Intervals Yale Rate: 80 P: -90 MN: 191 QRS: 28 QRSD: 96 T: 75 QT: 389 QTc: 451 Interpretive Statements MULTIFOCAL ATRIAL RHYTHM MINIMAL ST DEPRESSION DELAYED R PROGRESSION ABNORMAL RHYTHM ECG SIMILAR 07/17/18 Electronically Signed On 12-12-2018 21:21:05 EDT by Chitra Jimenez
--- NOTE | 2018-12-14 07:07 | ECHO ---
DATE OF STUDY: AGE: 78 REFERRING PROVIDER: Dr. Ayaan Farley PATIENT LOCATION: Room 5145 REASON FOR ECHOCARDIOGRAM: Pericardial effusion. 2D MEASUREMENTS: IVS: 1.0 cm LV: 5.7 cm LVPW: 1.0 cm LA: 3.7 cm Aorta: 3.0 cm IVC: 2.3 cm DOPPLER MEASUREMENTS: Peak velocity across the aortic valve: 1.6 m/s Peak velocity across the LVOT: 1.1 m/s Mitral E: 1.2 Mitral A: 0.89 with a ratio of 1.3 Maximum tricuspid valve velocity: 2.2 m/s 2D COMMENTS: 1. Normal left ventricular size, wall thickness, and normal global left ventricular systolic function. The estimated global left ventricular systolic ejection fraction is 60-65%. 2. Subjectively, the left atrium appeared to be mildly enlarged. Normal right atrium and right ventricle. 3. The atrial septum appeared to be normal without evidence of defect or shunt. 4. Normal aortic root. 5. Small to moderate pericardial effusion noted. No evidence of cardiac tamponade. 6. Mildly calcified aortic valve with normal leaflet excursion. Mildly calcified mitral annulus with normal anterior mitral valve leaflet motion. Normal tricuspid valve. The pulmonic valve and proximal pulmonary artery branches were not well visualized. 7. The inferior vena cava was mildly enlarged, central venous pressure might be elevated. Doppler, it detects trace to mild aortic regurgitation, mild mitral regurgitation, and mild tricuspid regurgitation. The calculated pulmonary artery systolic pressure was normal. Assessment of the left ventricular diastolic function also appeared to be normal. IMPRESSION: 1. Normal global left ventricular systolic and diastolic function. 2. Aortic valve sclerosis with trace to mild aortic regurgitation, but no aortic stenosis. 3. Mitral annulus calcification with mild mitral regurgitation. Subjectively, the left atrium appeared to be mildly enlarged. 4. Mild tricuspid regurgitation with a normal calculated pulmonary artery systolic pressure. 5. Small to moderate pericardial effusion noted, no evidence of cardiac tamponade. The patient might benefit from a chest CT for further evaluation. 6. The inferior cava was mildly enlarged, central venous pressure might be elevated.
== END 2018-12-12 21:00 | disposition short-term general hospital (02) | DRG 811 ==
LOC: M ED 13:56 → M ED INP 16:30 → M MS5PR 18:45
PROVIDERS: ADMIT Student in an Organized Health Care Education/Training Program; ATTEND Student in an Organized Health Care Education/Training Program
PROC: 30233N1 Transfusion of Nonautologous Red Blood Cells into Peripheral Vein, Percutaneous Approach (ICD-10-PCS; principal; 2018-12-10)
DX: D62 Acute posthemorrhagic anemia (principal); I71.1 Thoracic aortic aneurysm, ruptured; I31.3 Pericardial effusion (noninflammatory); J44.9 Chronic obstructive pulmonary disease, unspecified; E11.9 Type 2 diabetes mellitus without complications; Z86.718 Personal history of other venous thrombosis and embolism; Z88.5 Allergy status to narcotic agent; Z88.8 Allergy status to other drugs, medicaments and biological substances; Z79.899 Other long term (current) drug therapy; Z87.891 Personal history of nicotine dependence; N28.89 Other specified disorders of kidney and ureter

== ENCOUNTER → 2019-01-15 | Outpatient (CLI) | payer MEDICARE ==
[~2019-01-15] MED LIST changes: +FERR325T18 PO; +ISOVUE-370 76% 100ML VIAL (Q9967) As Ordered ONE; +METF-877 PO; +METF500T4 PO; +VITA-183 PO
--- NOTE | 2019-01-15 15:16 | REP ---
Clinical: Status post thoracic aortic stent graft placement for aneurysm. Technique: Axial contrast enhanced images from the thoracic inlet to the upper abdomen with coronal and sagittal re-formations using aortic angiographic technique. 100 ml Isovue 370 intravenous contrast material administered without complication. Comparison: 12/11/2018. Findings: Aortic stent graft in the descending thoracic aorta is appreciated which appropriately excludes a moderate posterior saccular thoracic aortic aneurysm. Atherosclerotic changes of the aorta and coronary arteries noted. A small pericardial effusion is again identified and remains stable. The bilateral lung clarke demonstrate chronic age-related interstitial changes without consolidation, effusion, or pneumothorax. Atelectasis/partial collapse to the right middle lobe on prior examination has resolved. No adenopathy. Impression: 1. Satisfactory aortic stent graft placement with complete exclusion of the posterior descending saccular aneurysm. 2. Stable small/moderate pericardial effusion. Electronically Signed by Montana Alaniz MD 01/15/2019 03:07 P
== END ==
LOC: M RAD 09:22
PROVIDERS: ATTEND Surgery Vascular Surgery
DX: I71.1 Thoracic aortic aneurysm, ruptured (principal); I31.3 Pericardial effusion (noninflammatory)
CPT/HCPCS: 71275; Q9967

== ENCOUNTER 2019-02-14 15:40 | Inpatient (IN) | payer MEDICARE ==
[~2019-02-14] VITALS: Ht 152.4 cm; Wt 80.1 kg
[~2019-02-14 15:40] MED LIST changes: -ISOVUE-370 76% 100ML VIAL (Q9967) As Ordered ONE
[2019-02-14] MEDS ORDERED: XARE20TA PO (15:51)
[2019-02-14] MEDS ORDERED: IPRATROPIUM 0.5MG/ALBUTEROL 2.5MG INH SOL UD 3ML (DUONEB)(J7620) NEB ONE (16:30)
--- NOTE | 2019-02-14 17:23 | REP ---
REASON: Dyspnea and cough. COMPARISON; 12/10/2018. The technique utilized in obtaining the radiograph has magnified the cardiac silhouette and accentuated the interstitial markings. There is global cardiomegaly accentuated by technique since the last examination an aortic stent graft has been placed. There is chronic fibrotic change status quo. There are no acute patchy parenchymal opacities or acute pleural effusions. There is no change in the osseous structures. IMPRESSION: Chronic changes as described above. There is a chronic right lower lobe opacity and other chronic changes. Electronically Signed by Giovani Bell DO 02/14/2019 05:39 P
[2019-02-14 17:32] LABS: BASO % 0.3 % (0.0-1.0); EOS % 0.3 % (0.0-3.0); HEMATOCRIT 21.6 % (36.0-47.0); LYMPH # 0.8 10^3/uL (1.5-4.5); LYMPH % 6.8 % (24.0-44.0); MEAN CORPUSCULAR HEMOGLOBIN 26.5 pg (27.0-33.0); MEAN CORPUSCULAR HGB CONC 30.6 g/dl (32.0-36.5); MEAN CORPUSCULAR VOLUME 86.7 fl (80.0-96.0); MONO # 1.3 10^3/uL (0.0-0.8); MONO % 11.2 % (0.0-5.0); NEUTROPHILS # 9.2 10^3/uL (1.8-7.7); PLATELET COUNT, AUTOMATED 176 10^3/uL (150-450); RED BLOOD COUNT 2.49 10^6/uL (4.00-5.40); WHITE BLOOD COUNT 11.4 10^3/uL (4.0-10.0)
[2019-02-14 17:46] LABS: INR 1.16; PROTHROMBIN TIME 14.5 SECONDS (11.8-14.0)
[2019-02-14 17:47] LABS: HEMOGLOBIN 6.6 g/dl (12.0-15.5)
[2019-02-14 18:03] LABS: ALBUMIN 2.7 GM/DL (3.2-5.2); ALT/SGPT 26 U/L (12-78); BILIRUBIN,DIRECT 0.3 MG/DL (0.0-0.2); BILIRUBIN,TOTAL 0.7 MG/DL (0.2-1.0); BLOOD UREA NITROGEN 17 MG/DL (7-18); CALCIUM LEVEL 8.1 MG/DL (8.8-10.2); CARBON DIOXIDE LEVEL 26 MEQ/L (21-32); CHLORIDE LEVEL 102 MEQ/L (98-107); CK-MB VALUE MASS 2.6 NG/ML (<3.6); CPK CREATINE PHOSPHOKINASE 66 U/L (26-192); CREATININE FOR GFR 0.74 MG/DL (0.55-1.30); GLOMERULAR FILTRATION RATE > 60.0 (>32); GLUCOSE, FASTING 142 MG/DL (70-100); MB/CK RELATIVE INDEX 3.94 (< OR =4); NT-PRO BNP 1371 PG/ML (<450); POTASSIUM SERUM 4.3 MEQ/L (3.5-5.1); SODIUM LEVEL 136 MEQ/L (136-145); THYROID STIMULATING HORMONE 0.542 uIU/ML (0.358-3.740); TROPONIN I 0.83 NG/ML (< 0.10)
[2019-02-14] MEDS ORDERED: CVS1CAP2 PO (18:45)
[2019-02-14] MEDS ORDERED: ACET500T15 PO (18:45)
[2019-02-14] MEDS ORDERED: ISOVUE-370 76% 100ML VIAL (Q9967) As Ordered ONE (18:45)
[2019-02-14 19:01] LABS: FERRITIN 20 NG/ML (8-252); IRON (FE) 27 UG/DL (50-170); PERCENT SATURATION 5.7 % (13.2-45.0); TOTAL IRON BINDING CAPACITY 476 UG/DL (250-450)
--- NOTE | 2019-02-14 19:45 | REPVR ---
EXAM: CT Chest With Contrast EXAM DATE/TIME: 02/14/2019 6:42 PM CLINICAL HISTORY: 78 years old, female; Other: Aaa repair, anemia; Additional info: Aaa repair/ anemia TECHNIQUE: Imaging protocol: Axial computed tomography images of the chest with intravenous contrast. Coronal and sagittal reformatted images were created and reviewed. Radiation optimization: All CT scans at this facility use at least one of these dose optimization techniques: automated exposure control; mA and/or kV adjustment per patient size (includes targeted exams where dose is matched to clinical indication); or iterative reconstruction. Contrast material: ISOVUE 370; Contrast volume: 100 ml; Contrast route: IV; COMPARISON: CT ANGIO CHEST 01/15/2019 9:45 AM FINDINGS: Lungs: There is bibasilar compressive atelectasis. Pleural space: Loculated pleural fluid in the lateral aspect of the right pleural cavity with overlying thickened pleural membrane and a second similar collection of the right lung base may represent loculated pleural effusions. Clinical correlation to exclude infection including empyema suggested. Heart: Small moderate pericardial effusion stable appearance. There is moderate atherosclerotic calcification of the coronary arteries. Possible stents in the left anterior descending coronary artery. Aorta: Status post placement of a graft in the ascending thoracic aorta again redemonstrated excluding a saccular posterior thoracic aortic aneurysm measuring 3.2 x 2.6 x 3.6 cm. The aorta demonstrates moderate atherosclerotic calcification. Lymph nodes: Unremarkable. No enlarged lymph nodes. Bones/joints: Unremarkable. No acute fracture. Soft tissues: Stable right paratracheal soft tissue density measuring 2.3 x 1 x 3.2 cm. Finding may represent ectopic thyroid tissue versus adenopathy. Liver: Examination of the liver demonstrates a lobular surface contour, and enlargement of the left and caudate lobes, findings consistent with cirrhosis. Pancreas: Pancreatic atrophy. Spleen: The spleen demonstrates punctate calcifications, consistent with remote granulomatous organism exposure. IMPRESSION: 1. Loculated pleural fluid in the lateral aspect of the right pleural cavity with overlying thickened pleural membrane and a second similar collection of the right lung base may represent loculated pleural effusions. Clinical correlation to exclude infection including empyema suggested. 2. Examination of the liver demonstrates a lobular surface contour, and enlargement of the left and caudate lobes, findings consistent with cirrhosis. 3. Status post placement of a graft in the ascending thoracic aorta again redemonstrated excluding a saccular posterior thoracic aortic aneurysm measuring 3.2 x 2.6 x 3.6 cm. 4. Stable right paratracheal soft tissue density measuring 2.3 x 1 x 3.2 cm. Finding may represent ectopic thyroid tissue versus adenopathy. Electronically signed by: Zaire Weems On 02/14/2019 19:44:38 PM
--- NOTE | 2019-02-14 19:53 | REPVR ---
EXAM: CT Abdomen and Pelvis With Contrast EXAM DATE/TIME: 02/14/2019 6:42 PM CLINICAL HISTORY: 78 years old, female; Other: Aaa repair, anemia; Additional info: Aaa repair/ anemia TECHNIQUE: Imaging protocol: Axial computed tomography images of the abdomen and pelvis with intravenous contrast. Coronal and sagittal reformatted images were created and reviewed. Radiation optimization: All CT scans at this facility use at least one of these dose optimization techniques: automated exposure control; mA and/or kV adjustment per patient size (includes targeted exams where dose is matched to clinical indication); or iterative reconstruction. Contrast material: ISOVUE 370; Contrast volume: 100 ml; Contrast route: IV; COMPARISON: CT ABD PELVIS WITH CONTRAST 12/05/2017 3:35 PM FINDINGS: Liver: Examination of the liver demonstrates a lobular surface contour, and enlargement of the left and caudate lobes, findings consistent with cirrhosis. Gallbladder and bile ducts: There has been a cholecystectomy. Pancreas: There is diffuse pancreatic atrophy. Spleen: There is mild splenomegaly with a maximum span of 13 centimeters. No focal abnormalities demonstrated. Adrenals: Normal. No mass. Kidneys and ureters: Solid enhancing mass projects off the lateral and posterior aspect of the left kidney consistent with a renal cell carcinoma measuring 4.2 x 4 x 3.8 cm. Stomach and bowel: Moderate diverticulosis is present in the distal colon. No diverticulitis. There is increased feces throughout the colon consistent with constipation. Inflammation in the left paracolic gutter may be related to chronic bouts of prior colonic inflammation low segmental colitis should be excluded clinically. Appendix: No evidence of appendicitis. Intraperitoneal space: Lower pelvic anatomy obscured by beam hardening artifact generated from metallic prostheses. Vasculature: The aorta demonstrates moderate atherosclerotic calcification. Ectatic abdominal aorta with a focal saccular aneurysm in the mid abdominal aorta measuring 3.8 cm maximum diameter located well above the bifurcation. Lymph nodes: Normal. No enlarged lymph nodes. Bladder: Unremarkable as visualized. Reproductive: There has been a hysterectomy. Bones/joints: Grade 2 anterolisthesis of L4 on L5. Osteoporosis. Moderate to severe central spinal stenosis L2-3, severe central spinal stenosis L3-4 and L4-5. Bilateral hip arthroplasties. Soft tissues: Unremarkable. IMPRESSION: 1. Examination of the liver demonstrates a lobular surface contour, and enlargement of the left and caudate lobes, findings consistent with cirrhosis. 2. There is mild splenomegaly with a maximum span of 13 centimeters. No focal abnormalities demonstrated. 3. There is diffuse pancreatic atrophy. 4. There has been a cholecystectomy. 5. Solid enhancing mass projects off the lateral and posterior aspect of the left kidney consistent with a renal cell carcinoma measuring 4.2 x 4 x 3.8 cm. 6. Ectatic abdominal aorta with a focal saccular aneurysm in the mid abdominal aorta measuring 3.8 cm maximum diameter located well above the bifurcation. 7. There has been a hysterectomy. 8. Moderate diverticulosis is present in the distal colon. No diverticulitis. 9. There is increased feces throughout the colon consistent with constipation. 10. Inflammation in the left paracolic gutter may be related to chronic bouts of prior colonic inflammation low segmental colitis should be excluded clinically. Electronically signed by: Zaire Weems On 02/14/2019 19:53:24 PM
[2019-02-14 21:53] LABS: CK-MB VALUE MASS 2.6 NG/ML (<3.6); MB/CK RELATIVE INDEX 4.19 (< OR =4); TROPONIN I 0.8 NG/ML (< 0.10)
[2019-02-15] VITALS (7 sets, daily range): BP systolic 101–147; BP diastolic 51–94
[2019-02-15] MEDS ORDERED: IPRATROPIUM 0.5MG/ALBUTEROL 2.5MG INH SOL UD 3ML (DUONEB)(J7620) NEB PRN (00:30)
[2019-02-15] MEDS ORDERED: GLUCAGON FOR INJ 1 MG VIAL (J1610) SC PRN (00:30)
[2019-02-15] MEDS ORDERED: ACETAMINOPHEN 500 MG TAB PO PRN (00:30)
[2019-02-15] MEDS ORDERED: FUROSEMIDE 40 MG/4 ML VIAL (J1940) IV ONE (00:30)
[2019-02-15] MEDS ORDERED: DEXTROSE 50% 50 ML SYRINGE IV PRN (00:30)
[2019-02-15] MEDS ORDERED: GLUCOSE 4 GM CHEW TABLET PO PRN (00:30)
--- NOTE | 2019-02-15 00:59 | HPEPDOC ---
General Date of Admission Feb 15, 2019 at 00:03 Date of Service: Feb 15, 2019 Chief Complaint The patient is a 78-year-old female admitted with a reason for visit of Gib; Symptomatic Anemia. 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 She has been using her oxygen all day when she usually uses it only at night. She complained that her SOB started 2 days ago, there was no cough or chest pain or palpitation. SHe had associated wheezing. No fever or chills. As it was not improving so she came to the ED . In [facility] ED she was found to have Hb of 6.6 . Her Guaic was positive, her trops were elevated to 0.8 and repeat was still at 0.8. She was also noted to have iron deficiency. She was admitted for symptomatic anemia and GIB. Home Medications Scheduled Cholecalciferol (Vitamin D3) (Vitamin D3) 1,000 Unit Capsule, 2,000 UNIT PO DAILY, (Reported) Lactobacillus Combo No.10 (Probiotic) 1 Each Capsule, 2 CAP PO QAM, (Reported) Metformin HCl (Metformin HCl ER) 500 Mg Tab.er.24h, 500 MG PO BID, (Reported) Rivaroxaban (Xarelto) 20 Mg Tablet, 20 MG PO DAILY, (Reported) Scheduled PRN Acetaminophen (Acetaminophen) 500 Mg Tablet, 500 MG PO Q4H PRN for PAIN, (Reported) Allergies Coded Allergies: Cephalosporins (Unverified Allergy, Unknown, HIVES, 12/10/18) morphine (Unverified Allergy, Unknown, LOCAL REDNESS, 12/10/18) Past Medical History Medical History Diabetes, Renal cell cancer, COPD, DVT, and GI bleed in 2017 status post for 4 colonoscopies , A fib diagnosed in december 2018, Iron deficiency, chronic anemia, diverticulosis, Cirrohis of liver in CT scan thoracic aortic aneurysm, abdominal aortic aneurysm. Surgical History Leaking thoracic Aorta aneurysm repair in december 2018. has a graft in ascending thoracic aorta. Hysterectomy Cholecystectomy Appendectomy Lumbar spinal fusion and laminectomy x 2 Bilateral hip replacement Family History Both parents with congestive heart failure Father with atrial fibrillation Brother with cirrhosis and diabetes mellitus Social History * Smoker: former Smoker Alcohol: Denies Drugs: denies A-FIB/CHADSVASC A-FIB History Current/History of A-Fib/PAF?: Yes Review of Systems Constitutional: Reports: Fatigue; Denies: Chills, Fever, Night Sweats Eyes: Denies: Pain, Vision change ENT: Denies: Head Aches, Ear Pain, Dysphagia Skin: Denies: Rash, Lesions, Breakdown Pulmonary: Reports: Dyspnea; Denies: Cough, Pleuritic Chest Pain Cardiovascular: Denies: Chest Pain, Palpitations, Orthopnea, Paroxysmal Noc. Dyspnea Gastrointestinal: Denies: Nausea, Vomiting, Abdominal Pain, Diarrhea, Constipation, Melena, Hematochezia Genitourinary: Denies: Dysuria, Frequency, Incontinence, Retention Hematologic: Denies: Bruising, Bleeding Excessively Musculoskeletal: Reports: Back Pain, Muscle Pain; Denies: Neck Pain Neurological: Denies: Weakness, Numbness, Change in speech, Confusion Physical Examination General Exam: Positive: Alert, No Acute Distress Eye Exam: Positive: PERRLA, Conjunctiva & lids normal, EOMI; Negative: Sclera icteric ENT Exam: Positive: Atraumatic, Mucous membr. moist/pink, Pharynx Normal Neck Exam: Positive: Supple; Negative: JVD, thyromegaly Chest Exam: Positive: Clear to auscultation, Diminished Heart Exam: Positive: Rate Normal, Regular Rhythm, Normal S1, Normal S2; Negative: Murmurs, Rubs Telemetry: Positive: No significant arrhythmia Abdomen Exam: Positive: Normal bowel sounds, Soft; Negative: Tenderness, Hepatospenomegaly Extremity Exam: Positive: Normal pulses; Negative: Clubbing, Cyanosis, Edema Skin Exam: Positive: Nl turgor and temperature; Negative: Breakdown, Lesion Neuro Exam: Positive: Normal Gait, Normal Speech, Normal Tone Psych Exam: Positive: Memory Intact, Oriented x 3 Vital Signs Vital Signs Date Time Temp Pulse Resp B/P (MAP) Pulse Ox O2 Delivery O2 Flow Rate FiO2 02/14/19 23:50 93 20 97 Nasal Cannula 2.0 02/14/19 23:30 108/54 (72) 02/14/19 16:03 99.2 Laboratory Data Labs 24H Laboratory Tests 2 02/14/19 17:21: Immature Granulocyte % (Auto) 0.4, White Blood Count 11.4H, Red Blood Count 2.49L, Hemoglobin 6.6*L, Hematocrit 21.6L, Mean Corpuscular Volume 86.7, Mean Corpuscular Hemoglobin 26.5L, Mean Corpuscular Hemoglobin Concent 30.6L, Red Cell Distribution Width 18.4H, Platelet Count 176, Neutrophils (%) (Auto) 81.0H, Lymphocytes (%) (Auto) 6.8L, Monocytes (%) (Auto) 11.2H, Eosinophils (%) (Auto) 0.3, Basophils (%) (Auto) 0.3, Neutrophils # (Auto) 9.2H, Lymphocytes # (Auto) 0.8L, Monocytes # (Auto) 1.3H, Eosinophils # (Auto) 0.0, Basophils # (Auto) 0.0, Reticulocyte # (auto) 69.6, Nucleated Red Blood Cells % (auto) 0.0, Percent Reticulocyte Count 2.8H, Reticulocyte Hemoglobin Equivalent 22.5L, Prothrombin Time 14.5H, Prothromb Time International Ratio 1.16, Anion Gap 8, Glomerular Filtration Rate > 60.0, Calcium Level 8.1L, Iron Level 27L, Total Iron Binding Capacity 476H, Transferrin % Saturation 5.7L, Ferritin 20, Aspartate Amino Trans f (AST/SGOT) 38H, Alanine Aminotransferase (ALT/SGPT) 26, Alkaline Phosphatase 163H, Total Bilirubin 0.7, Direct Bilirubin 0.3H, Total Creatine Kinase 66, Creatine Kinase MB 2.6, Creatine Kinase MB Relative Index 3.94, Troponin I 0.83H, RE-Bpj-W-Type Natriuretic Peptide 1371H, Total Protein 7.0, Albumin 2.7L, Albumin/Globulin Ratio 0.63L, Thyroid Stimulating Hormone (TSH) 0.542 02/14/19 21:08: Total Creatine Kinase 62, Creatine Kinase MB 2.6, Creatine Kinase MB Relative Index 4.19H, Troponin I 0.80H CBC/BMP Laboratory Tests 02/14/19 17:21 Red Blood Count 2.49 L, Mean Corpuscular Volume 86.7, Mean Corpuscular Hemoglobin 26.5 L, Mean Corpuscular Hemoglobin Concent 30.6 L, Red Cell Distribution Width 18.4 H, Neutrophils (%) (Auto) 81.0 H, Lymphocytes (%) (Auto) 6.8 L, Monocytes (%) (Auto) 11.2 H, Eosinophils (%) (Auto) 0.3, Basophils (%) (Auto) 0.3, Neutrophils # (Auto) 9.2 H, Lymphocytes # (Auto) 0.8 L, Monocytes # (Auto) 1.3 H, Eosinophils # (Auto) 0.0, Basophils # (Auto) 0.0 Microbiology Microbiology 02/14/19 Blood Culture, Received Pending 02/14/19 Blood Culture, Received Pending Assessment/Plan 78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 She has been using her oxygen all day when she usually uses it only at night. She complained that her SOB started 2 days ago, there was no cough or chest pain or palpitation. SHe had associated wheezing. No fever or chills. As it was not improving so she came to the ED . In [facility] ED she was found to have Hb of 6.6 . Her Guaic was positive, her trops were elevated to 0.8 and repeat was still at 0.8. She was also noted to have iron deficiency. She was admitted for symptomatic anemia and GIB. GIB She has history of polyps, h/o GIB in the past and diverticulosis Also she has been recently started on Xarelto for new afib follows with Dr Clifton student career development specialist in [place] will transfuse 2 units, monitor HH q6 hours if starts bleeding profusely or HH drops after transfusion will consult GI here for evaluation clear liquids. Hold xarelto Acute on chronic anemia post surgical , iron deficiency probably form slow chronic GIB which may have worsened with recent starting of xarelto. transfuse 2 units , recheck HH q 6 hours. lasix after second unit. Recent repair of leaking thoracic aortic aneurysm CT chest with contrast here shows no issues at present. Paroxysmal A fib diagnosed inMay now in sinus rhythm hold xarelto Loculated pleural effusion on the right recently post thoracic aneurysm surgery. Cirrhosis of Liver as per CT abdomen probably WANG no issues at this point says had EGD in 2017 did not show any varices Renal mass most probably renal cell ca on the left has urology in [place] following COPD nebs, oxygen Elevated trops possibly mild demand ischemia from anemia flat curve will recheck in 6 hours. Plan / VTE VTE Prophylaxis Ordered?: Yes RYAN RANKIN MD Feb 15, 2019 00:59
[2019-02-15] MEDS ORDERED: diphenhydrAMINE 25 MG CAP PO PRN (02:45)
[2019-02-15 05:51] LABS: BASO % 0.3 % (0.0-1.0); EOS # 0.1 10^3/uL (0.0-0.50); EOS % 0.6 % (0.0-3.0); HEMATOCRIT 24.6 % (36.0-47.0); HEMOGLOBIN 7.8 g/dl (12.0-15.5); LYMPH # 0.9 10^3/uL (1.5-4.5); LYMPH % 9.3 % (24.0-44.0); MEAN CORPUSCULAR HGB CONC 31.7 g/dl (32.0-36.5); MEAN CORPUSCULAR VOLUME 85.1 fl (80.0-96.0); MONO # 1.2 10^3/uL (0.0-0.8); NEUTROPHILS # 7.1 10^3/uL (1.8-7.7); NEUTROPHILS % 76.3 % (36.0-66.0); PLATELET COUNT, AUTOMATED 162 10^3/uL (150-450); RED BLOOD COUNT 2.89 10^6/uL (4.00-5.40); WHITE BLOOD COUNT 9.3 10^3/uL (4.0-10.0)
[2019-02-15 06:11] LABS: BLOOD UREA NITROGEN 16 MG/DL (7-18); CALCIUM LEVEL 7.8 MG/DL (8.8-10.2); CARBON DIOXIDE LEVEL 28 MEQ/L (21-32); CHLORIDE LEVEL 101 MEQ/L (98-107); CREATININE FOR GFR 0.85 MG/DL (0.55-1.30); GLOMERULAR FILTRATION RATE > 60.0 (>32); GLUCOSE, FASTING 136 MG/DL (70-100); SODIUM LEVEL 136 MEQ/L (136-145)
[2019-02-15] MEDS: ALBUTEROL SULFATE 2.5 MG/0.5 ML INH NEB SOLN NEB SCH ×3 (07:27→16:30)
[2019-02-15] MEDS: HumaLOG INSULIN (NovoLOG) PER UNIT SC SCH ×3 (08:13→17:30)
[2019-02-15] MEDS ORDERED: IRON SUCROSE 100MG 5ML VIAL (J1756 PER 1MG) IV ONE (09:45)
[2019-02-15] MEDS ORDERED: IRON SUCROSE 200 MG in NS 100 ML OVER 1 HR IV ONE (12:00)
--- NOTE | 2019-02-15 15:34 | DS.PDOC ---
Discharge Summary General Date of Admission Feb 15, 2019 at 00:03 Date of Discharge 02/15/2019 Discharge Summary PROCEDURES PERFORMED DURING STAY: [None]. ADMITTING DIAGNOSES: 1. Shortness of breath DISCHARGE DIAGNOSES: 1. GI bleeding and symptomatic anemia COMPLICATIONS/CHIEF COMPLAINT: Gib; Symptomatic Anemia. 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 She has been using her oxygen all day when she usually uses it only at night. She complained that her SOB started 2 days ago, there was no cough or chest pain or palpitation. SHe had associated wheezing. No fever or chills. As it was not improving so she came to the ED . [facility] was found to have Hb of 6.6 . Her Guaic was positive, her trops were elevated to 0.8 and repeat was still at 0.8. She was also noted to have iron deficiency. S he was admitted for symptomatic anemia and GIB. HOSPITAL COURSE: She has history of polyps, h/o GIB in the past and diverticulosis. She had colonoscopy x4 in 2016, and there was a polyp, which could not be removed due to her colon anatomy. Her Hb was 6.6 at admission. She received 2 units of pRBC, and it was increased to 7.8. She received additional 2 units. She was started on xarelto given newly diagnosed a fib. We advised to stop xarelto. I suggested colonoscopy here, but the patient wanted to go back to her GI physician, Dr. Campos in [facility]. Therefore, she was discharged after 4 units of transfusion in total. Iron study confirms iron deficiency anemia with low iron, ferritin, and elevated TIBC. She received IV iron x1 before discharge. She had CT CAP, which shows cirrhosis, splenomegaly, and a 4.5 cm mass in the kidney. The patient was not aware of liver cirrhosis, and I updated and explained this. 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 Likely from WANG, given HTN and obesity. She is already aware of the mass in the kidney, and she is following an oncologist about this. CT also shows loculated pleural effusion on the right, and this seems to be from recently post thoracic aneurysm surgery. She was also found to have elevated trops, and repeat trop showed plateau. This seems to be from demand ischemia from severe anemia. The patient will need to follow up with Dr. Campos, her GI physician as soon as possible. Especially, she was found to have liver cirrhosis as well. She may need EGD, on top of colonoscopy to r/o esophageal varices. DISCHARGE MEDICATIONS: Please see below. ALLERGIES: Please see below. PHYSICAL EXAMINATION ON DISCHARGE: VITAL SIGNS: Please see below. General Exam: Positive: Alert, No Acute Distress Eye Exam: Positive: PERRLA, Conjunctiva & lids normal, EOMI; Negative: Sclera icteric ENT Exam: Positive: Atraumatic, Mucous membr. moist/pink, Pharynx Normal Neck Exam: Positive: Supple; Negative: JVD, thyromegaly Chest Exam: Positive: Clear to auscultation, Diminished Heart Exam: Positive: Rate Normal, Regular Rhythm, Normal S1, Normal S2; Negative: Murmurs, Rubs Telemetry: Positive: No significant arrhythmia Abdomen Exam: Positive: Normal bowel sounds, Soft; Negative: Tenderness, Hepatospenomegaly Extremity Exam: Positive: Normal pulses; Negative: Clubbing, Cyanosis, Edema Skin Exam: Positive: Nl turgor and temperature; Negative: Breakdown, Lesion Neuro Exam: Positive: Normal Gait, Normal Speech, Normal Tone Psych Exam: Positive: Memory Intact, Oriented x 3 LABORATORY DATA: Please see below. Her GI bleeding seems to be slow, and she is medically stable to be discharged today. However, she needs to contact and be seen by Dr. Campos, GI physician as soon as possible. She is aware of this. Vital Signs/I&Os Vital Signs Date Time Temp Pulse Resp B/P (MAP) Pulse Ox O2 Delivery O2 Flow Rate FiO2 02/15/19 12:00 99.5 86 18 101/51 (68) 94 02/15/19 00:35 Nasal Cannula 2.0 I&O- Last 24 Hours up to 6 AM 02/15/19 06:00 Intake Total 300 ml Output Total 250 ml Balance 50 ml Laboratory Data Labs 24H Laboratory Tests 2 02/14/19 17:21: Immature Granulocyte % (Auto) 0.4, White Blood Count 11.4H, Red Blood Count 2.49L, Hemoglobin 6.6*L, Hematocrit 21.6L, Mean Corpuscular Volume 86.7, Mean Corpuscular Hemoglobin 26.5L, Mean Corpuscular Hemoglobin Concent 30.6L, Red Cell Distribution Width 18.4H, Platelet Count 176, Neutrophils (%) (Auto) 81.0H, Lymphocytes (%) (Auto) 6.8L, Monocytes (%) (Auto) 11.2H, Eosinophils (%) (Auto) 0.3, Basophils (%) (Auto) 0.3, Neutrophils # (Auto) 9.2H, Lymphocytes # (Auto) 0.8L, Monocytes # (Auto) 1.3H, Eosinophils # (Auto) 0.0, Basophils # (Auto) 0.0, Reticulocyte # (auto) 69.6, Nucleated Red Blood Cells % (auto) 0.0, Percent Reticulocyte Count 2.8H, Reticulocyte Hemoglobin Equivalent 22.5L, Prothrombin Time 14.5H, Prothromb Time International Ratio 1.16, Anion Gap 8, Glomerular Filtration Rate > 60.0, Calcium Level 8.1L, Iron Level 27L, Total Iron Binding Capacity 476H, Transferrin % Saturation 5.7L, Ferritin 20, Aspartate Amino Tra nsf (AST/SGOT) 38H, Alanine Aminotransferase (ALT/SGPT) 26, Alkaline Phosphatase 163H, Total Bilirubin 0.7, Direct Bilirubin 0.3H, Total Creatine Kinase 66, Creatine Kinase MB 2.6, Creatine Kinase MB Relative Index 3.94, Troponin I 0.83H, OP-Mik-Y-Type Natriuretic Peptide 1371H, Total Protein 7.0, Albumin 2.7L, Albumin/Globulin Ratio 0.63L, Thyroid Stimulating Hormone (TSH) 0.542 02/14/19 21:08: Total Creatine Kinase 62, Creatine Kinase MB 2.6, Creatine Kinase MB Relative In dex 4.19H, Troponin I 0.80H 02/15/19 05:32: Immature Granulocyte % (Auto) 0.5, White Blood Count 9.3, Red Blood Count 2.89L, Hemoglobin 7.8L, Hematocrit 24.6L, Mean Corpuscular Volume 85.1, Mean Corpuscular Hemoglobin 27.0, Mean Corpuscular Hemoglobin Concent 31.7L, Red Cell Distribution Width 17.2H, Platelet Count 162, Neutrophils (%) (Auto) 76.3H, Lymphocytes (%) (Auto) 9.3L, Monocytes (%) (Auto) 13.0H, Eosinophils (%) (Auto) 0.6, Basophils (%) (Auto) 0.3, Neutrophils # (Auto) 7.1, Lymphocytes # (Auto) 0.9L, Monocytes # (Auto) 1.2H, Eosinophils # (Auto) 0.1, Basophils # (Auto) 0.0, Nucleated Red Blood Cells % (auto) 0.0, Anion Gap 7L, Glomerular Filtration Rate > 60.0, Calcium Level 7.8L, Blood Urea Nitrogen 16, Creatinine 0.85, Sodium Level 136, Potassium Level 4.0, Chloride Level 101, Carbon Dioxide Level 28 02/15/19 12:16: Bedside Glucose (Misc Panel) 104 CBC/BMP Laboratory Tests 02/14/19 17:21 Red Blood Count 2.49 L, Mean Corpuscular Volume 86.7, Mean Corpuscular Hemoglobin 26.5 L, Mean Corpuscular Hemoglobin Concent 30.6 L, Red Cell Distribution Width 18.4 H, Neutrophils (%) (Auto) 81.0 H, Lymphocytes (%) (Auto) 6.8 L, Monocytes (%) (Auto) 11.2 H, Eosinophils (%) (Auto) 0.3, Basophils (%) (Auto) 0.3, Neutrophils # (Auto) 9.2 H, Lymphocytes # (Auto) 0.8 L, Monocytes # (Auto) 1.3 H, Eosinophils # (Auto) 0.0, Basophils # (Auto) 0.0 02/15/19 05:32 Red Blood Count 2.89 L, Mean Corpuscular Volume 85.1, Mean Corpuscular Hemoglobin 27.0, Mean Corpuscular Hemoglobin Concent 31.7 L, Red Cell Distribution Width 17.2 H, Neutrophils (%) (Auto) 76.3 H, Lymphocytes (%) (Auto) 9.3 L, Monocytes (%) (Auto) 13.0 H, Eosinophils (%) (Auto) 0.6, Basophils (%) (Auto) 0.3, Neutrophils # (Auto) 7.1, Lymphocytes # (Auto) 0.9 L, Monocytes # (Auto) 1.2 H, Eosinophils # (Auto) 0.1, Basophils # (Auto) 0.0, Calcium Level 7.8 L FSBS Laboratory Tests Test 02/15/19 12:16 Range/Units Bedside Glucose (Misc Panel) 104 83-110 MG/DL Microbiology Microbiology 02/14/19 Blood Culture, Received Pending 02/14/19 Blood Culture, Received Pending Discharge Medications Scheduled Cholecalciferol (Vitamin D3) (Vitamin D3) 1,000 Unit Capsule, 2,000 UNIT PO DAILY, (Reported) Lactobacillus Combo No.10 (Probiotic) 1 Each Capsule, 2 CAP PO QAM, (Reported) Metformin HCl (Metformin HCl ER) 500 Mg Tab.er.24h, 500 MG PO BID, (Reported) Rivaroxaban (Xarelto) 20 Mg Tablet, 20 MG PO DAILY, (Reported) Scheduled PRN Acetaminophen (Acetaminophen) 500 Mg Tablet, 500 MG PO Q4H PRN for PAIN, (Reported) Allergies Coded Allergies: Cephalosporins (Unverified Allergy, Unknown, HIVES, 12/10/18) morphine (Unverified Allergy, Unknown, LOCAL REDNESS, 12/10/18) RAGINI CAMPOS MD Feb 15, 2019 15:34
[2019-02-15] MEDS ORDERED: FUROSEMIDE 20 MG/2 ML VIAL (J1940) IV ONE (16:30)
[2019-02-15 17:30] LABS: HEMATOCRIT 32.1 % (36.0-47.0); HEMOGLOBIN 10.3 g/dl (12.0-15.5); MEAN CORPUSCULAR HEMOGLOBIN 27.5 pg (27.0-33.0); MEAN CORPUSCULAR HGB CONC 32.1 g/dl (32.0-36.5); MEAN CORPUSCULAR VOLUME 85.8 fl (80.0-96.0); PLATELET COUNT, AUTOMATED 155 10^3/uL (150-450); RED BLOOD COUNT 3.74 10^6/uL (4.00-5.40); WHITE BLOOD COUNT 9.2 10^3/uL (4.0-10.0)
[2019-02-15] MEDS ORDERED: HumaLOG INSULIN (NovoLOG) PER UNIT SC SCH (21:00)
--- NOTE | 2019-02-16 06:47 | ECGEPIP ---
[facility] - ED Test Date: 2019-02-14 Pat Name: VOLODYMYR ORR Department: Room: - Gender: Female Manager Information: lucero : 1940 Requested By: ALPHONSE Rhoades Order Number: [id number] Reading MD: Amari aMrrero Measurements Intervals [place] Rate: 84 P: 57 [place]: 259 QRS: 52 QRSD: 88 T: 46 QT: 389 QTc: 461 Interpretive Statements SINUS RHYTHM WITH FIRST DEGREE AV BLOCK WITH OCCASIONAL SUPRAVENTRICULAR PREMATURE COMPLEXES POOR R WAVE PROGRESSION NONSPECIFIC ST & T-WAVE ABNORMALITY Electronically Signed on 02-16-2019 6:46:33 EDT by Amari Marrero
--- NOTE | 2019-02-16 06:49 | ECGEPIP ---
[facility] - ED Test Date: 2019-02-14 Pat Name: VOLODYMYR ORR Department: Room: [place] [address] Gender: Female Partition Assembler: tierra : 1940 Requested By: ALPHONSE Rhoades Order Number: [id number] Reading MD: Amari Marrero Measurements Intervals [place] Rate: 87 P: [place]: 184 QRS: 19 QRSD: 96 T: 63 QT: 371 QTc: 446 Interpretive Statements SINUS RHYTHM WITH FIRST DEGREE AV BLOCK WITH SINUS ARRHYTHMIA POOR R WAVE PROGRESSION NSTTW ABNORMALITIES SIMILAR TO PRIOR ON SAME DATE Electronically Signed on 02-16-2019 6:49:16 EDT by Amari Marrero
== END 2019-02-15 19:16 | disposition home or self-care (01) | DRG 378 ==
LOC: M ED 15:40 → M ED INP 02-15 00:03 → M PCU 02-15 00:55
PROVIDERS: ADMIT Internal Medicine Nephrology; ATTEND Internal Medicine
PROC: 30233N1 Transfusion of Nonautologous Red Blood Cells into Peripheral Vein, Percutaneous Approach (ICD-10-PCS; principal; 2019-02-14)
DX: K92.2 Gastrointestinal hemorrhage, unspecified (principal); I24.8 Other forms of acute ischemic heart disease; C64.2 Malignant neoplasm of left kidney, except renal pelvis; D50.0 Iron deficiency anemia secondary to blood loss (chronic); E11.9 Type 2 diabetes mellitus without complications; K75.81 Nonalcoholic steatohepatitis (NASH); K74.60 Unspecified cirrhosis of liver; J44.9 Chronic obstructive pulmonary disease, unspecified; I48.0 Paroxysmal atrial fibrillation; K57.30 Diverticulosis of large intestine without perforation or abscess without bleeding; Z79.899 Other long term (current) drug therapy; Z88.5 Allergy status to narcotic agent; Z88.8 Allergy status to other drugs, medicaments and biological substances; Z86.718 Personal history of other venous thrombosis and embolism; Z96.641 Presence of right artificial hip joint; Z96.642 Presence of left artificial hip joint